=== PATIENT | male | born 1975 | race Caucasian/White ===

== ENCOUNTER 2019-11-30 10:39 | Observation (INO) | payer BC ==
[2019-11-30] MEDS ORDERED: Sodium Chloride 0.9% 2.5 ML Syringe FLUSH PRN (11:19)
[2019-11-30] MEDS ORDERED: Sodium Chloride 0.9% 10 ML Syringe FLUSH PRN (11:19)
[2019-11-30 12:02] LABS: BLOOD UREA NITROGEN,BUN 11 mg/dL (7.0-18.0); CARBON DIOXIDE,CO2 27.3 mmol/L (21.0-32.0); CHLORIDE,CL 104 mmol/L (98-107); GLUCOSE RANDOM 123 mg/dL (74-106); POTASSIUM,K 4.4 mmol/L (3.5-5.1); SODIUM,NA 141 mmol/L (136-148)
--- NOTE | 2019-11-30 12:13 | CR ---
Chest: 2 views of the chest were obtained. Comparison: No prior chest x-ray. Heart size and mediastinum are normal. Lungs are clear. Bony structures are unremarkable. Impression: 1. Nothing acute is seen on 2 view chest x-ray. Diagnostic code #1 This report was dictated in [place] Standard Time
[2019-11-30] MEDS ORDERED: Iopamidol 755 MG/ML 200 ML Multipack Bottle IVPUSH ONE (13:47)
--- NOTE | 2019-11-30 14:07 | CT ---
CT chest (without and with intravenous contrast) Technique: Multiple axial sections through the chest were obtained. Study was obtained without and with intravenous contrast. Comparison: Prior chest x-ray performed earlier on the same day (11:54 AM). Findings: Ascending aorta is slightly aneurysmal at 4.2 cm. Descending aorta measures normal at 2.4 cm. Mediastinum and hilar regions show no adenopathy or mass. No axillary adenopathy is seen. No pericardial thickening is noted. Mild gynecomastia is identified bilaterally. Fatty infiltration is noted within the liver. Cyst is noted within the left kidney measuring 2.1 cm. Lungs are clear. No acute parenchymal change is appreciated. No pleural effusions are noted. Bone window settings were reviewed which shows no acute osseous finding. Impression: 1. Ascending aorta mildly aneurysmal at 4.2 cm. 2. Other findings as noted above. 3. Nothing acute is appreciated on CT study of the chest. No mass lesion is seen. Diagnostic code #3 This report was dictated in [place] Standard Time
[2019-11-30] MEDS ORDERED: Ketorolac 30 MG/ML SDV IVPUSH ONE (15:40)
[2019-11-30] MEDS ORDERED: Morphine 4 MG/ML Syringe IVPUSH ONE (15:44)
--- NOTE | 2019-11-30 16:08 | EDM.PDOC ---
ED HPI GENERAL MEDICAL PROBLEM - General Chief Complaint: Chest Pain Stated Complaint: TAKEN BY NURSE Time Seen by Provider: 11/30/19 11:20 Source of Information: Reports: Patient - History of Present Illness INITIAL COMMENTS - FREE TEXT/NARRATIVE: Patient complains of left shoulder pain which began at 6 AM along with chest pain which began at 10 AM. Patient states that he did not engage in any sort of heavy exertion or unusual activity yesterday or today. The left shoulder pain is confined to the proximal left shoulder. The chest pain is in the substernal and left pectoral regions. Both pains began as he sat and watch TV. It is a tightness associated with dyspnea. No cough or wheezing. No nausea or diaphoresis. Pain does not change with walking or exertion. Chest pain changes with deep breathing. Denies any family or personal history of DVTs. Additionally, no travel in the past 30 days. Denies calf pain or swelling. No recent hospitalizations or fractures. Social history: Smokes. Family history: Negative for DVT, pulmonary embolism, acute [place]. Chest Pain Score (Numeric/FACES): 6 - Related Data Allergies Allergy/AdvReac Type Severity Reaction Status Date / Time amoxicillin [Amoxicillin] Allergy Hives Verified 11/30/19 17:15 bee venom protein (honey bee) Allergy Hives Verified 11/30/19 17:15 Home Meds: Home Meds . [No Known Home Meds] 05/20/14 [History] Past Medical History - Past Health History Medical/Surgical History: Denies Medical/Surgical History HEENT History: Reports: None Cardiovascular History: Reports: None Respiratory History: Reports: None Gastrointestinal History: Reports: None Genitourinary History: Reports: None Musculoskeletal History: Reports: None Neurological History: Reports: None Psychiatric History: Reports: None Endocrine/Metabolic History: Reports: None Hematologic History: Reports: None Immunologic History: Reports: None Oncologic (Cancer) History: Reports: None Dermatologic History: Reports: None - Infectious Disease History Infectious Disease History: Reports: Chicken Pox - Past Surgical History Head Surgeries/Procedures: Reports: None Musculoskeletal Surgical History: Reports: Arthroscopic Procedure Other Musculoskeletal Surgeries/Procedures:: R foot Social & Family History - Family History Family Medical History: Noncontributory - Tobacco Use Smoking Status *Q: Never Smoker Second Hand Smoke Exposure: No - Caffeine Use Caffeine Use: Reports: Coffee - Recreational Drug Use Recreational Drug Use: No ED ROS GENERAL - Review of Systems Review Of Systems: See Below (Review of systems negative for cough, fevers, wheeze. Review of systems positive for shortness of breath) ED EXAM, GENERAL - Physical Exam Exam: See Below Free Text/Narrative:: General: alert, well appearing, no acute distress HEENT: Atraumatic, normocephalic, pupils reactive, negative for conjunctival pallor or scleral icterus, mucous membranes moist, throat clear, handling oral secretions well. Neck: supple, nontender, trachea midline. Lungs: Clear to auscultation, breath sounds equal bilaterally, chest nontender. Heart: S1S2, regular, negative for clicks, rubs, or JVD. Abdomen: Soft, nondistended, nontender. Negative for masses or hepatosplenomegaly. Negative for costovertebral tenderness. Pelvis: Stable nontender. Skin: warm, dry, good turgor. Musculoskeletal: soft compartments. Extremities: Atraumatic, negative for cords or calf pain. Neurovascular unremarkable. Neuro: Awake, alert, oriented. Cranial nerves II through XII unremarkable. Cerebellum unremarkable. Motor and sensory unremarkable throughout. Exam nonfocal. EKG INTERPRETATION EKG Interpretation Comments: Ek bpm normal sinus rhythm with normal axis normal MA QRS, QTc intervals; no acute ST changes Course - Vital Signs Text/Narrative:: Cbc: wbc 16.72 (elev), otherwise unremarkable Cmp: hypegly (glu 123), otherwise unremarkable Coags: unremarkable Trop: eg d-dimer: nl UA: neg Lactate: 1.4 (nl) Influenza: neg Cxr: no acute infiltrate Ct chest: no mass lesion or acute parenchymal disease; the ascending aorta is mildly aneurysmal at 4.2 cm 12:28pm CBC shows unexplained leukocytosis. Will add UA, chest CT.Pts current temp is 97.5 RR 18 97% RA. Patient says he has no more left shoulder pain. He said is now moved to his right shoulder and that it does not change with movement. Neither joint has any kind of effusion or point tenderness. 1:00pm Pt awaiting labs, CT. Has undressed fully. No areas of cellulitis found. No hot, erythematous, tender, or swollen joints. No joint tenderness; FROM. 3:45pm Morphine given for discomfort. CT surg at [place] paged regarding pts CT finding. 3:54pm d/w Dr. Mishra, CT surgeon at [place]. He states that based on the CT report , pt needs an echo and should f/u with a machine rough rounder. Should meet with a CT surgeon soon, and will need annual f/u and repeated annual CTs to track the size of the aneurysm. If pt is a smoker, he should stop smoking. Treat any htn. Says he does not believe the chest pain is due to the aneurysm; suggests a cardiac workup. Discussed wit hospitalist, who agreed to admit pt for serial enzymes. Discussed with pt and his , who were amenable to plan to admit for serial enzymes. Also, pts bp has been elevated since arrival; perhaps some bp control can be instituted at this time. They are aware that they will need for pt to f/u with a machine rough rounder and CT surgeon next wk, and that this will not be done as part of his hospitalization for serial enzymes. Last Recorded V/S: Last Vital Signs Temp 99.2 F 11/30/19 19:37 Pulse 86 11/30/19 19:37 Resp 18 11/30/19 19:37 BP 174/100 H 11/30/19 19:34 Pulse Ox 96 11/30/19 19:37 - Orders/Labs/Meds Orders: Active Orders 24 hr Category Date Time Status Admission Status [Patient Status] [ADT] Stat ADT 11/30/19 16:10 Active Cardiac Monitoring [RC] Q8H Care 11/30/19 11:19 Active Sodium Chloride 0.9% [Saline Flush] Med 11/30/19 11:19 Active 10 ml FLUSH ASDIRECTED PRN Sodium Chloride 0.9% [Saline Flush] Med 11/30/19 11:19 Active 2.5 ml FLUSH ASDIRECTED PRN Saline Lock Insert [OM.PC] Stat Oth 11/30/19 11:19 Ordered Medication Orders Albuterol/Ipratropium (Duoneb 3.0-0.5 Mg/3 Ml) 3 ml NEB Q4HRRT PRN PRN Reason: Shortness Of Breath/wheezing Aspirin (Aspirin) 81 mg PO DAILY ROYAL Last Admin: 11/30/19 17:31 Dose: 81 mg Ketorolac Tromethamine (Toradol) 30 mg IVPUSH Q6H PRN PRN Reason: Pain Stop: 12/05/19 18:53 Labetalol HCl (Normodyne) 10 mg IVPUSH Q6H PRN; Protocol PRN Reason: Hypertension Metoprolol Succinate (Toprol Xl) 25 mg PO DAILY ROYAL Last Admin: 11/30/19 19:34 Dose: 25 mg Morphine Sulfate (Morphine) 1 mg IVPUSH Q4H PRN PRN Reason: Pain (severe 7-10) Stop: 12/01/19 16:54 Last Admin: 11/30/19 17:35 Dose: 1 mg Sodium Chloride (Saline Flush) 10 ml FLUSH ASDIRECTED PRN PRN Reason: Keep Vein Open Last Admin: 11/30/19 16:23 Dose: 10 ml Sodium Chloride (Saline Flush) 2.5 ml FLUSH ASDIRECTED PRN PRN Reason: Keep Vein Open Last Admin: 11/30/19 16:23 Dose: 2.5 ml Labs: Laboratory Tests 11/30/19 11/30/19 11/30/19 Range/Units 11:27 11:27 11:27 WBC 16.72 H (4.0-11.0) K/uL RBC 5.12 (4.50-5.90) M/uL Hgb 15.9 (13.0-17.0) g/dL Hct 45.7 (38.0-50.0) % MCV 89.3 (80.0-98.0) fL MCH 31.1 (27.0-32.0) pg MCHC 34.8 (31.0-37.0) g/dL RDW Std Deviation 40.4 (28.0-62.0) fl RDW Coeff of [place] 13 (11.0-15.0) % Plt Count 256 (150-400) K/uL MPV 9.70 (7.40-12.00) fL Neut % (Auto) 84.5 H (48.0-80.0) % Lymph % (Auto) 8.4 L (16.0-40.0) % [place] % (Auto) 6.2 (0.0-15.0) % Eos % (Auto) 0.8 (0.0-7.0) % Baso % (Auto) 0.1 (0.0-1.5) % Neut # (Auto) 14.1 H (1.4-5.7) K/uL Lymph # (Auto) 1.4 (0.6-2.4) K/uL [place] # (Auto) 1.0 H (0.0-0.8) K/uL Eos # (Auto) 0.1 (0.0-0.7) K/uL Baso # (Auto) 0.0 (0.0-0.1) K/uL Nucleated RBC % 0.0 /100WBC Nucleated RBCs # 0 K/uL INR 0.98 D-Dimer, Quantitative (0.0-0.50) mg/L FEU Lactate (0.20-2.00) mmol/L Sodium 141 (136-148) mmol/L Potassium 4.4 (3.5-5.1) mmol/L Chloride 104 (98-107) mmol/L Carbon Dioxide 27.3 (21.0-32.0) mmol/L BUN 11 (7.0-18.0) mg/dL Creatinine 1.1 (0.8-1.3) mg/dL Est Cr Clr Drug Dosing 97.56 mL/min Estimated GFR (MDRD) > 60.0 ml/min Glucose 123 H (74-106) mg/dL Hemoglobin A1c (4.5-6.2) % Calcium 9.0 (8.5-10.1) mg/dL Total Bilirubin 0.4 (0.2-1.0) mg/dL AST 29 (15-37) IU/L ALT 55 (14-63) IU/L Alkaline Phosphatase 63 (46-116) U/L Troponin I < 0.050 (0.000-0.056) ng/mL Total Protein 8.1 (6.4-8.2) g/dL Albumin 4.2 (3.4-5.0) g/dL Globulin 3.9 (2.6-4.0) g/dL Albumin/Globulin Ratio 1.1 (0.9-1.6) TSH 3rd Generation (0.36-3.74) uIU/mL Urine Color Urine Appearance Urine pH (5.0-8.0) Ur Specific [place] (1.001-1.035) Urine Protein (NEGATIVE) mg/dL Urine Glucose (UA) (NEGATIVE) mg/dL Urine Ketones (NEGATIVE) mg/dL Urine Occult Blood (NEGATIVE) Urine Nitrite (NEGATIVE) Urine Bilirubin (NEGATIVE) Urine Urobilinogen (<2.0) EU/dL Ur Leukocyte Esterase (NEGATIVE) 11/30/19 11/30/19 11/30/19 Range/Units 11:27 11:27 11:27 WBC (4.0-11.0) K/uL RBC (4.50-5.90) M/uL Hgb (13.0-17.0) g/dL Hct (38.0-50.0) % MCV (80.0-98.0) fL MCH (27.0-32.0) pg MCHC (31.0-37.0) g/dL RDW Std Deviation (28.0-62.0) fl RDW Coeff of [place] (11.0-15.0) % Plt Count (150-400) K/uL MPV (7.40-12.00) fL Neut % (Auto) (48.0-80.0) % Lymph % (Auto) (16.0-40.0) % [place] % (Auto) (0.0-15.0) % Eos % (Auto) (0.0-7.0) % Baso % (Auto) (0.0-1.5) % Neut # (Auto) (1.4-5.7) K/uL Lymph # (Auto) (0.6-2.4) K/uL [place] # (Auto) (0.0-0.8) K/uL Eos # (Auto) (0.0-0.7) K/uL Baso # (Auto) (0.0-0.1) K/uL Nucleated RBC % /100WBC Nucleated RBCs # K/uL INR D-Dimer, Quantitative 0.23 (0.0-0.50) mg/L FEU Lactate (0.20-2.00) mmol/L Sodium (136-148) mmol/L Potassium (3.5-5.1) mmol/L Chloride (98-107) mmol/L Carbon Dioxide (21.0-32.0) mmol/L BUN (7.0-18.0) mg/dL Creatinine (0.8-1.3) mg/dL Est Cr Clr Drug Dosing mL/min Estimated GFR (MDRD) ml/min Glucose (74-106) mg/dL Hemoglobin A1c 5.4 (4.5-6.2) % Calcium (8.5-10.1) mg/dL Total Bilirubin (0.2-1.0) mg/dL AST (15-37) IU/L ALT (14-63) IU/L Alkaline Phosphatase (46-116) U/L Troponin I (0.000-0.056) ng/mL Total Protein (6.4-8.2) g/dL Albumin (3.4-5.0) g/dL Globulin (2.6-4.0) g/dL Albumin/Globulin Ratio (0.9-1.6) TSH 3rd Generation 1.67 (0.36-3.74) uIU/mL Urine Color Urine Appearance Urine pH (5.0-8.0) Ur Specific [place] (1.001-1.035) Urine Protein (NEGATIVE) mg/dL Urine Glucose (UA) (NEGATIVE) mg/dL Urine Ketones (NEGATIVE) mg/dL Urine Occult Blood (NEGATIVE) Urine Nitrite (NEGATIVE) Urine Bilirubin (NEGATIVE) Urine Urobilinogen (<2.0) EU/dL Ur Leukocyte Esterase (NEGATIVE) 11/30/19 11/30/19 Range/Units 12:43 14:37 WBC (4.0-11.0) K/uL RBC (4.50-5.90) M/uL Hgb (13.0-17.0) g/dL Hct (38.0-50.0) % MCV (80.0-98.0) fL MCH (27.0-32.0) pg MCHC (31.0-37.0) g/dL RDW Std Deviation (28.0-62.0) fl RDW Coeff of [place] (11.0-15.0) % Plt Count (150-400) K/uL MPV (7.40-12.00) fL Neut % (Auto) (48.0-80.0) % Lymph % (Auto) (16.0-40.0) % [place] % (Auto) (0.0-15.0) % Eos % (Auto) (0.0-7.0) % Baso % (Auto) (0.0-1.5) % Neut # (Auto) (1.4-5.7) K/uL Lymph # (Auto) (0.6-2.4) K/uL [place] # (Auto) (0.0-0.8) K/uL Eos # (Auto) (0.0-0.7) K/uL Baso # (Auto) (0.0-0.1) K/uL Nucleated RBC % /100WBC Nucleated RBCs # K/uL INR D-Dimer, Quantitative (0.0-0.50) mg/L FEU Lactate 1.4 (0.20-2.00) mmol/L Sodium (136-148) mmol/L Potassium (3.5-5.1) mmol/L Chloride (98-107) mmol/L Carbon Dioxide (21.0-32.0) mmol/L BUN (7.0-18.0) mg/dL Creatinine (0.8-1.3) mg/dL Est Cr Clr Drug Dosing mL/min Estimated GFR (MDRD) ml/min Glucose (74-106) mg/dL Hemoglobin A1c (4.5-6.2) % Calcium (8.5-10.1) mg/dL Total Bilirubin (0.2-1.0) mg/dL AST (15-37) IU/L ALT (14-63) IU/L Alkaline Phosphatase (46-116) U/L Troponin I (0.000-0.056) ng/mL Total Protein (6.4-8.2) g/dL Albumin (3.4-5.0) g/dL Globulin (2.6-4.0) g/dL Albumin/Globulin Ratio (0.9-1.6) TSH 3rd Generation (0.36-3.74) uIU/mL Urine Color YELLOW Urine Appearance CLEAR Urine pH 5.5 (5.0-8.0) Ur Specific [place] 1.015 (1.001-1.035) Urine Protein NEGATIVE (NEGATIVE) mg/dL Urine Glucose (UA) NEGATIVE (NEGATIVE) mg/dL Urine Ketones NEGATIVE (NEGATIVE) mg/dL Urine Occult Blood NEGATIVE (NEGATIVE) Urine Nitrite NEGATIVE (NEGATIVE) Urine Bilirubin NEGATIVE (NEGATIVE) Urine Urobilinogen 0.2 (<2.0) EU/dL Ur Leukocyte Esterase NEGATIVE (NEGATIVE) Meds: Medications Generic Name Dose Route Start Last Admin Trade Name Freq PRN Reason Stop Dose Admin Albuterol/Ipratropium 3 ml 11/30/19 16:52 Duoneb 3.0-0.5 Mg/3 Ml NEB Q4HRRT PRN Shortness Of Breath/wheezing Aspirin 81 mg 11/30/19 17:15 11/30/19 17:31 Aspirin PO 81 mg DAILY ROYAL Administration Ketorolac Tromethamine 30 mg 11/30/19 18:52 Toradol IVPUSH 12/05/19 18:53 Q6H PRN Pain Labetalol HCl 10 mg 11/30/19 17:03 Normodyne IVPUSH Q6H PRN Hypertension Protocol Metoprolol Succinate 25 mg 11/30/19 19:30 11/30/19 19:34 Toprol Xl PO 25 mg DAILY ROYAL Administration Morphine Sulfate 1 mg 11/30/19 16:52 11/30/19 17:35 Morphine IVPUSH 12/01/19 16:54 1 mg Q4H PRN Administration Pain (severe 7-10) Sodium Chloride 10 ml 11/30/19 11:19 11/30/19 16:23 Saline Flush FLUSH 10 ml ASDIRECTED PRN Administration Keep Vein Open Sodium Chloride 2.5 ml 11/30/19 11:19 11/30/19 16:23 Saline Flush FLUSH 2.5 ml ASDIRECTED PRN Administration Keep Vein Open Discontinued Medications Generic Name Dose Route Start Last Admin Trade Name Freq PRN Reason Stop Dose Admin Calcium Carbonate/Glycine 1,000 mg 11/30/19 18:49 11/30/19 19:02 Tums PO 11/30/19 18:50 1,000 mg ONETIME ONE Administration Pantoprazole Sodium 40 mg/ 10 mls @ 300 mls/hr 11/30/19 18:48 11/30/19 19:03 Sodium Chloride IV 11/30/19 18:49 300 mls/hr NOW ONE Administration Iopamidol 75 ml 11/30/19 13:47 11/30/19 13:47 Isovue Multipack-370 (76%) IVPUSH 11/30/19 13:48 75 ml ONETIME ONE Administration Ketorolac Tromethamine 30 mg 11/30/19 15:40 11/30/19 16:55 Toradol IVPUSH 11/30/19 15:41 Not Given ONETIME ONE Lorazepam 1 mg 11/30/19 18:50 11/30/19 19:03 Ativan IVPUSH 11/30/19 18:51 1 mg ONETIME ONE Administration Morphine Sulfate 4 mg 11/30/19 15:44 11/30/19 16:22 Morphine IVPUSH 11/30/19 15:45 Not Given ONETIME ONE Departure - Departure Time of Disposition: 16:00 Disposition: Refer to Observation Clinical Impression: Chest pain, HTN (hypertension) Sepsis Event Note - Evaluation Sepsis Screening Result: No Definite Risk - Focused Exam Vital Signs: Vital Signs Temp Pulse Resp BP Pulse Ox 11/30/19 16:22 95 16 152/104 H 95 11/30/19 14:30 90 16 165/106 H 96 11/30/19 12:29 97.5 F 11/30/19 10:42 96 F L 88 18 162/101 H 97 Date Exam was Performed: 11/30/19 Time Exam was Performed: 20:33 - My Orders Last 24 Hours: My Active Orders 11/30/19 11:19 Cardiac Monitoring [RC] Q8H Sodium Chloride 0.9% [Saline Flush] 10 ml FLUSH ASDIRECTED PRN Sodium Chloride 0.9% [Saline Flush] 2.5 ml FLUSH ASDIRECTED PRN Saline Lock Insert [OM.PC] Stat 11/30/19 16:10 Admission Status [Patient Status] [ADT] Stat - Assessment/Plan Last 24 Hours: My Active Orders 11/30/19 11:19 Cardiac Monitoring [RC] Q8H Sodium Chloride 0.9% [Saline Flush] 10 ml FLUSH ASDIRECTED PRN Sodium Chloride 0.9% [Saline Flush] 2.5 ml FLUSH ASDIRECTED PRN Saline Lock Insert [OM.PC] Stat 11/30/19 16:10 Admission Status [Patient Status] [ADT] Stat
[2019-11-30] MEDS ORDERED: Morphine 2 MG/ML SYRINGE IVPUSH PRN (16:52)
[2019-11-30] MEDS ORDERED: Albuterol/Ipratropium 3.0-0.5 MG/3 ML Neb Soln NEB PRN (16:52)
[2019-11-30] MEDS ORDERED: Labetalol 100 MG/20 ML MDV IVPUSH PRN (17:03)
--- NOTE | 2019-11-30 17:14 | PCM.HP.2 ---
H&P History of Present Illness - General Date of Service: 11/30/19 Admit Problem/Dx: Admission Diagnosis/Problem Admission Diagnosis/Problem Chest pain - History of Present Illness Initial Comments - Free Text/Narative: Patient is a 44 y/o M with PMH of HTN who comes in with complains of left shoulder pain which began at 6 AM , he felt as if he had slept in a bad posture , later he started feeling short of breath as well. He feels like he is unable to take deep breaths and has a sharp pain when he takes deep breaths. Patient states that he did not engage in any sort of heavy exertion or unusual activity lately. He states his chest pain feels like "heart burn" he feels he can the burning in his "stomach area". No cough or wheezing, No nausea or diaphoresis. Denies any family or personal history of DVTs. Additionally, no travel in the past 30 days. Denies calf pain or swelling. No recent hospitalizations or fractures. In the ER EKG was obtained which was unremarkable for any acute ST, T wave changes, 1st set of trop was negative, BP was on higher side in 170s. Chest CT showed a small AAA, CT surgeon in [place] recommended outpatient f/u, CBC showed leucocytosis, although no source of infection was found. Patient is being admitted for ACS rule out due to persistent pain. . Chest Pain Score (Numeric/FACES): 6 - Related Data Allergies/Adverse Reactions: Allergies Allergy/AdvReac Type Severity Reaction Status Date / Time amoxicillin [Amoxicillin] Allergy Hives Verified 11/30/19 17:15 bee venom protein (honey bee) Allergy Hives Verified 11/30/19 17:15 Home Medications: Home Meds Omeprazole 40 mg PO DAILY #30 capsule. 12/01/19 [Rx] Sucralfate [Carafate] 1 gm PO TIDAC 7 Days #21 tablet 12/01/19 [Rx] Past Medical History - Past Health History Medical/Surgical History: Denies Medical/Surgical History HEENT History: Reports: None Cardiovascular History: Reports: None Respiratory History: Reports: None Gastrointestinal History: Reports: None Genitourinary History: Reports: None Musculoskeletal History: Reports: None Neurological History: Reports: None Psychiatric History: Reports: None Endocrine/Metabolic History: Reports: None Hematologic History: Reports: None Immunologic History: Reports: None Oncologic (Cancer) History: Reports: None Dermatologic History: Reports: None - Infectious Disease History Infectious Disease History: Reports: Chicken Pox - Past Surgical History Head Surgeries/Procedures: Reports: None Musculoskeletal Surgical History: Reports: Arthroscopic Procedure Other Musculoskeletal Surgeries/Procedures:: R foot Social & Family History - Family History Family Medical History: Noncontributory - Tobacco Use Smoking Status *Q: Former Smoker Used Tobacco, but Quit: No Second Hand Smoke Exposure: No - Caffeine Use Caffeine Use: Reports: Coffee - Alcohol Use Number of Drinks Per Day: 6 Date of Last Drink: 11/29/19 Time of Last Drink: 23:00 - Recreational Drug Use Recreational Drug Use: No H&P Review of Systems - Review of Systems: Review Of Systems: See Below General: Denies: Fever, Chills, Malaise HEENT: Denies: Dysphasia, Ear Pain, Eye Pain Pulmonary: Denies: Shortness of Breath, Wheezing, Pleuritic Chest Pain Cardiovascular: Reports: Chest Pain, Dyspnea on Exertion. Denies: Palpitations , Edema, Lightheadedness, Claudication Gastrointestinal: Denies: Abdominal Pain, Anorexia, Black Stool Genitourinary: Denies: Dysuria, Frequency Musculoskeletal: Reports: Shoulder Pain (left). Denies: Neck Pain Skin: Denies: Cyanosis, Jaundice, Mottled Psychiatric: Reports: Anxiety. Denies: Confusion, Depression Exam - Exam Exam: See Below - Vital Signs Vital Signs: Last Vital Signs Temp 36.4 C 11/30/19 12:29 Pulse 95 11/30/19 16:22 Resp 16 11/30/19 16:22 BP 152/104 H 11/30/19 16:22 Pulse Ox 95 11/30/19 16:22 Weight: 110.767 kg - Exam Quality Assessment: No: Supplemental Oxygen General: Alert, Oriented HEENT: Conjunctiva Clear Neck: Supple, Trachea Midline Lungs: Clear to Auscultation, Normal Respiratory Effort. No: Decreased Breath Sounds, Wheezing Cardiovascular: Regular Rate, Regular Rhythm, Normal S1, Normal S2 GI/Abdominal Exam: Normal Bowel Sounds, Soft, Non-Tender - Patient Data Lab Results Last 24 hrs: Laboratory Results - last 24 hr 11/30/19 11/30/19 11/30/19 Range/Units 11:27 11:27 11:27 WBC 16.72 H (4.0-11.0) K/uL RBC 5.12 (4.50-5.90) M/uL Hgb 15.9 (13.0-17.0) g/dL Hct 45.7 (38.0-50.0) % MCV 89.3 (80.0-98.0) fL MCH 31.1 (27.0-32.0) pg MCHC 34.8 (31.0-37.0) g/dL RDW Std Deviation 40.4 (28.0-62.0) fl RDW Coeff of Satnam 13 (11.0-15.0) % Plt Count 256 (150-400) K/uL MPV 9.70 (7.40-12.00) fL Neut % (Auto) 84.5 H (48.0-80.0) % Lymph % (Auto) 8.4 L (16.0-40.0) % Florence % (Auto) 6.2 (0.0-15.0) % Eos % (Auto) 0.8 (0.0-7.0) % Baso % (Auto) 0.1 (0.0-1.5) % Neut # (Auto) 14.1 H (1.4-5.7) K/uL Lymph # (Auto) 1.4 (0.6-2.4) K/uL Florence # (Auto) 1.0 H (0.0-0.8) K/uL Eos # (Auto) 0.1 (0.0-0.7) K/uL Baso # (Auto) 0.0 (0.0-0.1) K/uL Nucleated RBC % 0.0 /100WBC Nucleated RBCs # 0 K/uL INR 0.98 D-Dimer, Quantitative (0.0-0.50) mg/L FEU Lactate (0.20-2.00) mmol/L Sodium 141 (136-148) mmol/L Potassium 4.4 (3.5-5.1) mmol/L Chloride 104 (98-107) mmol/L Carbon Dioxide 27.3 (21.0-32.0) mmol/L BUN 11 (7.0-18.0) mg/dL Creatinine 1.1 (0.8-1.3) mg/dL Est Cr Clr Drug Dosing 97.56 mL/min Estimated GFR (MDRD) > 60.0 ml/min Glucose 123 H (74-106) mg/dL Calcium 9.0 (8.5-10.1) mg/dL Total Bilirubin 0.4 (0.2-1.0) mg/dL AST 29 (15-37) IU/L ALT 55 (14-63) IU/L Alkaline Phosphatase 63 (46-116) U/L Troponin I < 0.050 (0.000-0.056) ng/mL Total Protein 8.1 (6.4-8.2) g/dL Albumin 4.2 (3.4-5.0) g/dL Globulin 3.9 (2.6-4.0) g/dL Albumin/Globulin Ratio 1.1 (0.9-1.6) Urine Color Urine Appearance Urine pH (5.0-8.0) Ur Specific Lund (1.001-1.035) Urine Protein (NEGATIVE) mg/dL Urine Glucose (UA) (NEGATIVE) mg/dL Urine Ketones (NEGATIVE) mg/dL Urine Occult Blood (NEGATIVE) Urine Nitrite (NEGATIVE) Urine Bilirubin (NEGATIVE) Urine Urobilinogen (<2.0) EU/dL Ur Leukocyte Esterase (NEGATIVE) 11/30/19 11/30/19 11/30/19 Range/Units 11:27 12:43 14:37 WBC (4.0-11.0) K/uL RBC (4.50-5.90) M/uL Hgb (13.0-17.0) g/dL Hct (38.0-50.0) % MCV (80.0-98.0) fL MCH (27.0-32.0) pg MCHC (31.0-37.0) g/dL RDW Std Deviation (28.0-62.0) fl RDW Coeff of Satnam (11.0-15.0) % Plt Count (150-400) K/uL MPV (7.40-12.00) fL Neut % (Auto) (48.0-80.0) % Lymph % (Auto) (16.0-40.0) % Florence % (Auto) (0.0-15.0) % Eos % (Auto) (0.0-7.0) % Baso % (Auto) (0.0-1.5) % Neut # (Auto) (1.4-5.7) K/uL Lymph # (Auto) (0.6-2.4) K/uL Florence # (Auto) (0.0-0.8) K/uL Eos # (Auto) (0.0-0.7) K/uL Baso # (Auto) (0.0-0.1) K/uL Nucleated RBC % /100WBC Nucleated RBCs # K/uL INR D-Dimer, Quantitative 0.23 (0.0-0.50) mg/L FEU Lactate 1.4 (0.20-2.00) mmol/L Sodium (136-148) mmol/L Potassium (3.5-5.1) mmol/L Chloride (98-107) mmol/L Carbon Dioxide (21.0-32.0) mmol/L BUN (7.0-18.0) mg/dL Creatinine (0.8-1.3) mg/dL Est Cr Clr Drug Dosing mL/min Estimated GFR (MDRD) ml/min Glucose (74-106) mg/dL Calcium (8.5-10.1) mg/dL Total Bilirubin (0.2-1.0) mg/dL AST (15-37) IU/L ALT (14-63) IU/L Alkaline Phosphatase (46-116) U/L Troponin I (0.000-0.056) ng/mL Total Protein (6.4-8.2) g/dL Albumin (3.4-5.0) g/dL Globulin (2.6-4.0) g/dL Albumin/Globulin Ratio (0.9-1.6) Urine Color YELLOW Urine Appearance CLEAR Urine pH 5.5 (5.0-8.0) Ur Specific Lund 1.015 (1.001-1.035) Urine Protein NEGATIVE (NEGATIVE) mg/dL Urine Glucose (UA) NEGATIVE (NEGATIVE) mg/dL Urine Ketones NEGATIVE (NEGATIVE) mg/dL Urine Occult Blood NEGATIVE (NEGATIVE) Urine Nitrite NEGATIVE (NEGATIVE) Urine Bilirubin NEGATIVE (NEGATIVE) Urine Urobilinogen 0.2 (<2.0) EU/dL Ur Leukocyte Esterase NEGATIVE (NEGATIVE) Result Diagrams: 12/01/19 06:45 11/30/19 11:27 [place] Results Last 24 hrs: Microbiology 11/30/19 12:40 Influenza Type A Antigen Screen - Final Nasopharyngeal Swab NEGATIVE INFLUENZA A VIRUS AG REFERENCE RANGE: NEGATIVE Influenza Type B Antigen Screen - Final NEGATIVE INFLUENZA B VIRUS AG REFERENCE RANGE: NEGATIVE Sepsis Event Note - Evaluation Sepsis Screening Result: No Definite Risk - Focused Exam Vital Signs: Vital Signs Temp Pulse Resp BP Pulse Ox 11/30/19 16:22 95 16 152/104 H 95 11/30/19 14:30 90 16 165/106 H 96 11/30/19 12:29 36.4 C 11/30/19 10:42 35.5 C L 88 18 162/101 H 97 Date Exam was Performed: 12/06/19 Time Exam was Performed: 12:42 - Problem List (1) Ascending aortic aneurysm Status: Acute (2) HTN (hypertension) SNOMED Code(s): 22953998 ICD Code: I10 - ESSENTIAL (PRIMARY) HYPERTENSION Status: Acute (3) Chest pain SNOMED Code(s): 10176737 ICD Code: R07.9 - CHEST PAIN, UNSPECIFIED Status: Acute (4) Leucocytosis SNOMED Code(s): 342816849, 020625011 ICD Code: D72.829 - ELEVATED WHITE BLOOD CELL COUNT, UNSPECIFIED Status: Acute Problem List Initiated/Reviewed/Updated: Yes Orders Last 24hrs: Active Orders 24 hr Category Date Time Status Admission Status [Patient Status] [ADT] Stat ADT 11/30/19 16:10 Active Ambulate [RC] ASDIRECTED Care 11/30/19 16:45 Active Antiembolic Devices [RC] PER UNIT ROUTINE Care 11/30/19 16:55 Active Cardiac Monitoring [RC] . DIRECTED Care 11/30/19 11:19 Active Oxygen Therapy [RC] PRN Care 11/30/19 16:45 Active Pulse Oximetry [RC] PRN Care 11/30/19 16:45 Active RT Aerosol Therapy [RC] ASDIRECTED Care 11/30/19 16:55 Active VTE/DVT Education [RC] PER UNIT ROUTINE Care 11/30/19 16:45 Active Vital Signs [RC] Q4H Care 11/30/19 16:45 Active Heart Healthy Diet [DIET] Diet 11/30/19 Dinner Active Echo Comp wo Cont [US] Routine Exams 11/30/19 17:12 Ordered CBC WITH AUTO DIFF [HEME] AM Lab 12/01/19 05:11 Ordered GLYCOSYLATED HEMOGLOBIN,HGBA1C [CHEM] Routine Lab 11/30/19 11:27 Received LIPID PANEL [CHEM] AM Lab 12/02/19 05:11 Ordered MAGNESIUM [CHEM] AM Lab 12/01/19 05:11 Ordered PHOSPHORUS [CHEM] AM Lab 12/01/19 05:11 Ordered TROPONIN I [CHEM] Q6H Lab 11/30/19 17:30 Ordered TROPONIN I [CHEM] Q6H Lab 11/30/19 23:30 Ordered TSH [CHEM] Routine Lab 11/30/19 11:27 Received Albuterol/Ipratropium [DuoNeb 3.0-0.5 MG/3 ML] Med 11/30/19 16:52 Active 3 ml NEB Q4HRRT PRN Aspirin Med 11/30/19 17:15 Active 81 mg PO DAILY Labetalol [Normodyne] Med 11/30/19 17:03 Active 10 mg IVPUSH Q6H PRN Metoprolol Succinate [Toprol XL] Med 12/01/19 09:00 Active 25 mg PO DAILY Morphine Med 11/30/19 16:52 Active 1 mg IVPUSH Q4H PRN Sodium Chloride 0.9% [Saline Flush] Med 11/30/19 11:19 Active 10 ml FLUSH ASDIRECTED PRN Sodium Chloride 0.9% [Saline Flush] Med 11/30/19 11:19 Active 2.5 ml FLUSH ASDIRECTED PRN Saline Lock Insert [OM.PC] Stat Oth 11/30/19 11:19 Ordered Sequential Compression Device [OM.PC] Per Unit Routine Oth 11/30/19 16:47 Ordered Resuscitation Status Routine Resus Stat 11/30/19 16:45 Ordered Medication Orders Albuterol/Ipratropium (Duoneb 3.0-0.5 Mg/3 Ml) 3 ml NEB Q4HRRT PRN PRN Reason: Shortness Of Breath/wheezing Aspirin (Aspirin) 81 mg PO DAILY ROYAL Labetalol HCl (Normodyne) 10 mg IVPUSH Q6H PRN; Protocol PRN Reason: Hypertension Metoprolol Succinate (Toprol Xl) 25 mg PO DAILY ROYAL Morphine Sulfate (Morphine) 1 mg IVPUSH Q4H PRN PRN Reason: Pain (severe 7-10) Stop: 12/01/19 16:54 Sodium Chloride (Saline Flush) 10 ml FLUSH ASDIRECTED PRN PRN Reason: Keep Vein Open Last Admin: 11/30/19 16:23 Dose: 10 ml Sodium Chloride (Saline Flush) 2.5 ml FLUSH ASDIRECTED PRN PRN Reason: Keep Vein Open Last Admin: 11/30/19 16:23 Dose: 2.5 ml Assessment/Plan Comment:: 44 y/o M admitted for chest pain (pain with deep inspiration) EKG unremarkable, Troponin 2 sets negative so far cont trending total of 3 sets Chest pain seems pleuritic in nature, will check ESR, CRP BP control with PRN Labetalol 10mg IV Start Metoprolol 25mg daily check TSH, lipid profile, HbA1c, 2D ECHO Administer PPI 40mg IV and Maalox now Toradol for pain as needed Leucocytosis, CXR clear, UA clean, no other source of infection on physical exam , could be reactive, repeat CBC in AM Monitor and replete electrolytes as needed cont to monitor vitals closely
[2019-11-30] MEDS: Aspirin 81 MG Tab.Chew PO SCH (17:31)
[2019-11-30 17:37] LABS: HEMOGLOBIN A1C 5.4 % (4.5-6.2)
[2019-11-30] MEDS ORDERED: Pantoprazole 40 MG in Sodium Chloride 0.9% 10 ML IV ONE (18:48)
[2019-11-30] MEDS ORDERED: Calcium Carbonate 500 MG Tab.Chew PO ONE (18:49)
[2019-11-30] MEDS ORDERED: LORazepam 2 MG/ML SDV IVPUSH ONE (18:50)
[2019-11-30] MEDS ORDERED: Ketorolac 30 MG/ML SDV IVPUSH PRN (18:52)
[2019-11-30] MEDS: Metoprolol Succinate 25 MG Tab.ER PO SCH (19:34)
[2019-12-01] MEDS: Aspirin 81 MG Tab.Chew PO SCH (08:05)
[2019-12-01] MEDS: Metoprolol Succinate 25 MG Tab.ER PO SCH (08:05)
--- NOTE | 2019-12-01 10:43 | PCM.DCSUM1 ---
<Abdullahi Carlson - Last Filed: 12/01/19 12:21> Discharge Summary - Hospital Course Free Text/Narrative:: 44 y/o male who presented to the ER complaining of chest pain and pleurisy. He was admitted for ACS rule out. Serial troponins were negative. CT chest showed mildly enlarged AAA at 4.2 cm. He will need outpatient follow-up for this, possibly referral to cardiothoracic surgery. In addition, he will need ECHO and stress test as outpatient for further evaluation. His chest pain resolved with Toradol and GI cocktail. He was discharged home on Omeprazole 40 mg PO daily and Carafate with instructions to follow-up with his PCP in 1-2 weeks. - Discharge Data Discharge Date: 12/01/19 Discharge Disposition: Home, Self-Care 01 Condition: Good - Referral to Home Health Primary Care Physician: PCP None - Patient Instructions Diet: Regular Diet as Tolerated Activity: As Tolerated Notify Provider of: Fever, Increased Pain, Swelling and Redness, Nausea and/or Vomiting Other/Special Instructions: You can use Tylenol or Ibuprofen for pain as needed. - Discharge Plan Prescriptions/Med Rec: Omeprazole 40 mg PO DAILY #30 capsule. Sucralfate [Carafate] 1 gm PO TIDAC 7 Days #21 tablet Home Medications: Home Meds Omeprazole 40 mg PO DAILY #30 capsule. 12/01/19 [Rx] Sucralfate [Carafate] 1 gm PO TIDAC 7 Days #21 tablet 12/01/19 [Rx] Patient Handouts: Sucralfate tablets, Gastroesophageal Reflux Disease, Adult, Pleurisy, [id number]-[id number], Omeprazole tablets (OTC) Referrals: Morgan Bui MD [Ordering Only Provider] - (Call on Monday to make a hospital floow-up. The appointment was not made for you, due to it being the weekend. You need to be seen in 1 week, and talk to the doctor about getting an ECHO for your heart. ) - Discharge Summary/Plan Comment DC Time >30 min.: No - Patient Data Vitals - Most Recent: Last Vital Signs Temp 36.3 C 12/01/19 08:00 Pulse 84 12/01/19 08:05 Resp 18 12/01/19 08:00 BP 122/84 12/01/19 08:05 Pulse Ox 94 L 12/01/19 08:00 Weight - Most Recent: 110.767 kg I&O - Last 24 hours: Intake & Output 11/30/19 12/01/19 12/01/19 22:59 06:59 14:59 Intake Total 0 120 Balance 0 120 Lab Results - Last 24 hrs: Laboratory Results - last 24 hr 11/30/19 11/30/19 11/30/19 Range/Units 11:27 11:27 11:27 WBC 16.72 H (4.0-11.0) K/uL RBC 5.12 (4.50-5.90) M/uL Hgb 15.9 (13.0-17.0) g/dL Hct 45.7 (38.0-50.0) % MCV 89.3 (80.0-98.0) fL MCH 31.1 (27.0-32.0) pg MCHC 34.8 (31.0-37.0) g/dL RDW Std Deviation 40.4 (28.0-62.0) fl RDW Coeff of Satnam 13 (11.0-15.0) % Plt Count 256 (150-400) K/uL MPV 9.70 (7.40-12.00) fL Neut % (Auto) 84.5 H (48.0-80.0) % Lymph % (Auto) 8.4 L (16.0-40.0) % [place] % (Auto) 6.2 (0.0-15.0) % Eos % (Auto) 0.8 (0.0-7.0) % Baso % (Auto) 0.1 (0.0-1.5) % Neut # (Auto) 14.1 H (1.4-5.7) K/uL Lymph # (Auto) 1.4 (0.6-2.4) K/uL [place] # (Auto) 1.0 H (0.0-0.8) K/uL Eos # (Auto) 0.1 (0.0-0.7) K/uL Baso # (Auto) 0.0 (0.0-0.1) K/uL Nucleated RBC % 0.0 /100WBC Nucleated RBCs # 0 K/uL ESR (0-14) mm/hr INR 0.98 D-Dimer, Quantitative (0.0-0.50) mg/L FEU Lactate (0.20-2.00) mmol/L Sodium 141 (136-148) mmol/L Potassium 4.4 (3.5-5.1) mmol/L Chloride 104 (98-107) mmol/L Carbon Dioxide 27.3 (21.0-32.0) mmol/L BUN 11 (7.0-18.0) mg/dL Creatinine 1.1 (0.8-1.3) mg/dL Est Cr Clr Drug Dosing 97.56 mL/min Estimated GFR (MDRD) > 60.0 ml/min Glucose 123 H (74-106) mg/dL Hemoglobin A1c (4.5-6.2) % Calcium 9.0 (8.5-10.1) mg/dL Phosphorus (2.6-4.7) mg/dL Magnesium (1.8-2.4) mg/dL Total Bilirubin 0.4 (0.2-1.0) mg/dL AST 29 (15-37) IU/L ALT 55 (14-63) IU/L Alkaline Phosphatase 63 (46-116) U/L Troponin I < 0.050 (0.000-0.056) ng/mL Total Protein 8.1 (6.4-8.2) g/dL Albumin 4.2 (3.4-5.0) g/dL Globulin 3.9 (2.6-4.0) g/dL Albumin/Globulin Ratio 1.1 (0.9-1.6) TSH 3rd Generation (0.36-3.74) uIU/mL Urine Color Urine Appearance Urine pH (5.0-8.0) Ur Specific Duarte (1.001-1.035) Urine Protein (NEGATIVE) mg/dL Urine Glucose (UA) (NEGATIVE) mg/dL Urine Ketones (NEGATIVE) mg/dL Urine Occult Blood (NEGATIVE) Urine Nitrite (NEGATIVE) Urine Bilirubin (NEGATIVE) Urine Urobilinogen (<2.0) EU/dL Ur Leukocyte Esterase (NEGATIVE) 11/30/19 11/30/19 11/30/19 Range/Units 11:27 11:27 11:27 WBC (4.0-11.0) K/uL RBC (4.50-5.90) M/uL Hgb (13.0-17.0) g/dL Hct (38.0-50.0) % MCV (80.0-98.0) fL MCH (27.0-32.0) pg MCHC (31.0-37.0) g/dL RDW Std Deviation (28.0-62.0) fl RDW Coeff of Satnam (11.0-15.0) % Plt Count (150-400) K/uL MPV (7.40-12.00) fL Neut % (Auto) (48.0-80.0) % Lymph % (Auto) (16.0-40.0) % [place] % (Auto) (0.0-15.0) % Eos % (Auto) (0.0-7.0) % Baso % (Auto) (0.0-1.5) % Neut # (Auto) (1.4-5.7) K/uL Lymph # (Auto) (0.6-2.4) K/uL [place] # (Auto) (0.0-0.8) K/uL Eos # (Auto) (0.0-0.7) K/uL Baso # (Auto) (0.0-0.1) K/uL Nucleated RBC % /100WBC Nucleated RBCs # K/uL ESR (0-14) mm/hr INR D-Dimer, Quantitative 0.23 (0.0-0.50) mg/L FEU Lactate (0.20-2.00) mmol/L Sodium (136-148) mmol/L Potassium (3.5-5.1) mmol/L Chloride (98-107) mmol/L Carbon Dioxide (21.0-32.0) mmol/L BUN (7.0-18.0) mg/dL Creatinine (0.8-1.3) mg/dL Est Cr Clr Drug Dosing mL/min Estimated GFR (MDRD) ml/min Glucose (74-106) mg/dL Hemoglobin A1c 5.4 (4.5-6.2) % Calcium (8.5-10.1) mg/dL Phosphorus (2.6-4.7) mg/dL Magnesium (1.8-2.4) mg/dL Total Bilirubin (0.2-1.0) mg/dL AST (15-37) IU/L ALT (14-63) IU/L Alkaline Phosphatase (46-116) U/L Troponin I (0.000-0.056) ng/mL Total Protein (6.4-8.2) g/dL Albumin (3.4-5.0) g/dL Globulin (2.6-4.0) g/dL Albumin/Globulin Ratio (0.9-1.6) TSH 3rd Generation 1.67 (0.36-3.74) uIU/mL Urine Color Urine Appearance Urine pH (5.0-8.0) Ur Specific Duarte (1.001-1.035) Urine Protein (NEGATIVE) mg/dL Urine Glucose (UA) (NEGATIVE) mg/dL Urine Ketones (NEGATIVE) mg/dL Urine Occult Blood (NEGATIVE) Urine Nitrite (NEGATIVE) Urine Bilirubin (NEGATIVE) Urine Urobilinogen (<2.0) EU/dL Ur Leukocyte Esterase (NEGATIVE) 11/30/19 11/30/19 11/30/19 Range/Units 12:43 14:37 17:32 WBC (4.0-11.0) K/uL RBC (4.50-5.90) M/uL Hgb (13.0-17.0) g/dL Hct (38.0-50.0) % MCV (80.0-98.0) fL MCH (27.0-32.0) pg MCHC (31.0-37.0) g/dL RDW Std Deviation (28.0-62.0) fl RDW Coeff of Satnam (11.0-15.0) % Plt Count (150-400) K/uL MPV (7.40-12.00) fL Neut % (Auto) (48.0-80.0) % Lymph % (Auto) (16.0-40.0) % [place] % (Auto) (0.0-15.0) % Eos % (Auto) (0.0-7.0) % Baso % (Auto) (0.0-1.5) % Neut # (Auto) (1.4-5.7) K/uL Lymph # (Auto) (0.6-2.4) K/uL [place] # (Auto) (0.0-0.8) K/uL Eos # (Auto) (0.0-0.7) K/uL Baso # (Auto) (0.0-0.1) K/uL Nucleated RBC % /100WBC Nucleated RBCs # K/uL ESR (0-14) mm/hr INR D-Dimer, Quantitative (0.0-0.50) mg/L FEU Lactate 1.4 (0.20-2.00) mmol/L Sodium (136-148) mmol/L Potassium (3.5-5.1) mmol/L Chloride (98-107) mmol/L Carbon Dioxide (21.0-32.0) mmol/L BUN (7.0-18.0) mg/dL Creatinine (0.8-1.3) mg/dL Est Cr Clr Drug Dosing mL/min Estimated GFR (MDRD) ml/min Glucose (74-106) mg/dL Hemoglobin A1c (4.5-6.2) % Calcium (8.5-10.1) mg/dL Phosphorus (2.6-4.7) mg/dL Magnesium (1.8-2.4) mg/dL Total Bilirubin (0.2-1.0) mg/dL AST (15-37) IU/L ALT (14-63) IU/L Alkaline Phosphatase (46-116) U/L Troponin I < 0.050 (0.000-0.056) ng/mL Total Protein (6.4-8.2) g/dL Albumin (3.4-5.0) g/dL Globulin (2.6-4.0) g/dL Albumin/Globulin Ratio (0.9-1.6) TSH 3rd Generation (0.36-3.74) uIU/mL Urine Color YELLOW Urine Appearance CLEAR Urine pH 5.5 (5.0-8.0) Ur Specific Duarte 1.015 (1.001-1.035) Urine Protein NEGATIVE (NEGATIVE) mg/dL Urine Glucose (UA) NEGATIVE (NEGATIVE) mg/dL Urine Ketones NEGATIVE (NEGATIVE) mg/dL Urine Occult Blood NEGATIVE (NEGATIVE) Urine Nitrite NEGATIVE (NEGATIVE) Urine Bilirubin NEGATIVE (NEGATIVE) Urine Urobilinogen 0.2 (<2.0) EU/dL Ur Leukocyte Esterase NEGATIVE (NEGATIVE) 11/30/19 11/30/19 12/01/19 Range/Units 17:32 23:40 06:45 WBC 10.09 (4.0-11.0) K/uL RBC 4.74 (4.50-5.90) M/uL Hgb 14.5 (13.0-17.0) g/dL Hct 42.3 (38.0-50.0) % MCV 89.2 (80.0-98.0) fL MCH 30.6 (27.0-32.0) pg MCHC 34.3 (31.0-37.0) g/dL RDW Std Deviation 41.6 (28.0-62.0) fl RDW Coeff of Satnam 13 (11.0-15.0) % Plt Count 234 (150-400) K/uL MPV 9.60 (7.40-12.00) fL Neut % (Auto) 66.5 (48.0-80.0) % Lymph % (Auto) 19.6 (16.0-40.0) % [place] % (Auto) 12.2 (0.0-15.0) % Eos % (Auto) 1.5 (0.0-7.0) % Baso % (Auto) 0.2 (0.0-1.5) % Neut # (Auto) 6.7 H (1.4-5.7) K/uL Lymph # (Auto) 2.0 (0.6-2.4) K/uL [place] # (Auto) 1.2 H (0.0-0.8) K/uL Eos # (Auto) 0.2 (0.0-0.7) K/uL Baso # (Auto) 0.0 (0.0-0.1) K/uL Nucleated RBC % 0.0 /100WBC Nucleated RBCs # 0 K/uL ESR 2 (0-14) mm/hr INR D-Dimer, Quantitative (0.0-0.50) mg/L FEU Lactate (0.20-2.00) mmol/L Sodium (136-148) mmol/L Potassium (3.5-5.1) mmol/L Chloride (98-107) mmol/L Carbon Dioxide (21.0-32.0) mmol/L BUN (7.0-18.0) mg/dL Creatinine (0.8-1.3) mg/dL Est Cr Clr Drug Dosing mL/min Estimated GFR (MDRD) ml/min Glucose (74-106) mg/dL Hemoglobin A1c (4.5-6.2) % Calcium (8.5-10.1) mg/dL Phosphorus (2.6-4.7) mg/dL Magnesium (1.8-2.4) mg/dL Total Bilirubin (0.2-1.0) mg/dL AST (15-37) IU/L ALT (14-63) IU/L Alkaline Phosphatase (46-116) U/L Troponin I < 0.050 (0.000-0.056) ng/mL Total Protein (6.4-8.2) g/dL Albumin (3.4-5.0) g/dL Globulin (2.6-4.0) g/dL Albumin/Globulin Ratio (0.9-1.6) TSH 3rd Generation (0.36-3.74) uIU/mL Urine Color Urine Appearance Urine pH (5.0-8.0) Ur Specific Duarte (1.001-1.035) Urine Protein (NEGATIVE) mg/dL Urine Glucose (UA) (NEGATIVE) mg/dL Urine Ketones (NEGATIVE) mg/dL Urine Occult Blood (NEGATIVE) Urine Nitrite (NEGATIVE) Urine Bilirubin (NEGATIVE) Urine Urobilinogen (<2.0) EU/dL Ur Leukocyte Esterase (NEGATIVE) 12/01/19 Range/Units 06:45 WBC (4.0-11.0) K/uL RBC (4.50-5.90) M/uL Hgb (13.0-17.0) g/dL Hct (38.0-50.0) % MCV (80.0-98.0) fL MCH (27.0-32.0) pg MCHC (31.0-37.0) g/dL RDW Std Deviation (28.0-62.0) fl RDW Coeff of Satnam (11.0-15.0) % Plt Count (150-400) K/uL MPV (7.40-12.00) fL Neut % (Auto) (48.0-80.0) % Lymph % (Auto) (16.0-40.0) % [place] % (Auto) (0.0-15.0) % Eos % (Auto) (0.0-7.0) % Baso % (Auto) (0.0-1.5) % Neut # (Auto) (1.4-5.7) K/uL Lymph # (Auto) (0.6-2.4) K/uL [place] # (Auto) (0.0-0.8) K/uL Eos # (Auto) (0.0-0.7) K/uL Baso # (Auto) (0.0-0.1) K/uL Nucleated RBC % /100WBC Nucleated RBCs # K/uL ESR (0-14) mm/hr INR D-Dimer, Quantitative (0.0-0.50) mg/L FEU Lactate (0.20-2.00) mmol/L Sodium (136-148) mmol/L Potassium (3.5-5.1) mmol/L Chloride (98-107) mmol/L Carbon Dioxide (21.0-32.0) mmol/L BUN (7.0-18.0) mg/dL Creatinine (0.8-1.3) mg/dL Est Cr Clr Drug Dosing mL/min Estimated GFR (MDRD) ml/min Glucose (74-106) mg/dL Hemoglobin A1c (4.5-6.2) % Calcium (8.5-10.1) mg/dL Phosphorus 3.9 (2.6-4.7) mg/dL Magnesium 2.1 (1.8-2.4) mg/dL Total Bilirubin (0.2-1.0) mg/dL AST (15-37) IU/L ALT (14-63) IU/L Alkaline Phosphatase (46-116) U/L Troponin I (0.000-0.056) ng/mL Total Protein (6.4-8.2) g/dL Albumin (3.4-5.0) g/dL Globulin (2.6-4.0) g/dL Albumin/Globulin Ratio (0.9-1.6) TSH 3rd Generation (0.36-3.74) uIU/mL Urine Color Urine Appearance Urine pH (5.0-8.0) Ur Specific Duarte (1.001-1.035) Urine Protein (NEGATIVE) mg/dL Urine Glucose (UA) (NEGATIVE) mg/dL Urine Ketones (NEGATIVE) mg/dL Urine Occult Blood (NEGATIVE) Urine Nitrite (NEGATIVE) Urine Bilirubin (NEGATIVE) Urine Urobilinogen (<2.0) EU/dL Ur Leukocyte Esterase (NEGATIVE) [facility] Results - Last 24 hrs: Microbiology 11/30/19 12:40 Influenza Type A Antigen Screen - Final Nasopharyngeal Swab NEGATIVE INFLUENZA A VIRUS AG REFERENCE RANGE: NEGATIVE Influenza Type B Antigen Screen - Final NEGATIVE INFLUENZA B VIRUS AG REFERENCE RANGE: NEGATIVE Med Orders - Current: Current Medications Albuterol/Ipratropium (Duoneb 3.0-0.5 Mg/3 Ml) 3 ml NEB Q4HRRT PRN PRN Reason: Shortness Of Breath/wheezing Aspirin (Aspirin) 81 mg PO DAILY [facility] Last Admin: 12/01/19 08:05 Dose: 81 mg Ketorolac Tromethamine (Toradol) 30 mg IVPUSH Q6H PRN PRN Reason: Pain Stop: 12/05/19 18:53 Last Admin: 11/30/19 21:35 Dose: 30 mg Labetalol HCl (Normodyne) 10 mg IVPUSH Q6H PRN; Protocol PRN Reason: Hypertension Metoprolol Succinate (Toprol Xl) 25 mg PO DAILY [facility] Last Admin: 12/01/19 08:05 Dose: 25 mg Morphine Sulfate (Morphine) 1 mg IVPUSH Q4H PRN PRN Reason: Pain (severe 7-10) Stop: 12/01/19 16:54 Last Admin: 11/30/19 17:35 Dose: 1 mg Sodium Chloride (Saline Flush) 10 ml FLUSH ASDIRECTED PRN PRN Reason: Keep Vein Open Last Admin: 11/30/19 16:23 Dose: 10 ml Sodium Chloride (Saline Flush) 2.5 ml FLUSH ASDIRECTED PRN PRN Reason: Keep Vein Open Last Admin: 11/30/19 16:23 Dose: 2.5 ml Discontinued Medications Calcium Carbonate/Glycine (Tums) 1,000 mg PO ONETIME ONE Stop: 11/30/19 18:50 Last Admin: 11/30/19 19:02 Dose: 1,000 mg Pantoprazole Sodium 40 mg/ (Sodium Chloride) 10 mls @ 300 mls/hr IV NOW ONE Stop: 11/30/19 18:49 Last Admin: 11/30/19 19:03 Dose: 300 mls/hr Iopamidol (Isovue Multipack-370 (76%)) 75 ml IVPUSH ONETIME ONE Stop: 11/30/19 13:48 Last Admin: 11/30/19 13:47 Dose: 75 ml Ketorolac Tromethamine (Toradol) 30 mg IVPUSH ONETIME ONE Stop: 11/30/19 15:41 Last Admin: 11/30/19 16:55 Dose: Not Given Lorazepam (Ativan) 1 mg IVPUSH ONETIME ONE Stop: 11/30/19 18:51 Last Admin: 11/30/19 19:03 Dose: 1 mg Morphine Sulfate (Morphine) 4 mg IVPUSH ONETIME ONE Stop: 11/30/19 15:45 Last Admin: 11/30/19 16:22 Dose: Not Given <Ramirez Maya - Last Filed: 12/05/19 10:13> Discharge Summary - Referral to Home Health Primary Care Physician: PCP None - Patient Data Vitals - Most Recent: Last Vital Signs Temp 36.3 C 12/01/19 08:00 Pulse 84 12/01/19 08:05 Resp 18 12/01/19 08:00 BP 122/84 12/01/19 08:05 Pulse Ox 94 L 12/01/19 08:00 Med Orders - Current: Current Medications Discontinued Medications Albuterol/Ipratropium (Duoneb 3.0-0.5 Mg/3 Ml) 3 ml NEB Q4HRRT PRN PRN Reason: Shortness Of Breath/wheezing Aspirin (Aspirin) 81 mg PO DAILY [facility] Last Admin: 12/01/19 08:05 Dose: 81 mg Calcium Carbonate/Glycine (Tums) 1,000 mg PO ONETIME ONE Stop: 11/30/19 18:50 Last Admin: 11/30/19 19:02 Dose: 1,000 mg Pantoprazole Sodium 40 mg/ (Sodium Chloride) 10 mls @ 300 mls/hr IV NOW ONE Stop: 11/30/19 18:49 Last Admin: 11/30/19 19:03 Dose: 300 mls/hr Iopamidol (Isovue Multipack-370 (76%)) 75 ml IVPUSH ONETIME ONE Stop: 11/30/19 13:48 Last Admin: 11/30/19 13:47 Dose: 75 ml Ketorolac Tromethamine (Toradol) 30 mg IVPUSH ONETIME ONE Stop: 11/30/19 15:41 Last Admin: 11/30/19 16:55 Dose: Not Given Ketorolac Tromethamine (Toradol) 30 mg IVPUSH Q6H PRN PRN Reason: Pain Stop: 12/05/19 18:53 Last Admin: 11/30/19 21:35 Dose: 30 mg Labetalol HCl (Normodyne) 10 mg IVPUSH Q6H PRN; Protocol PRN Reason: Hypertension Lorazepam (Ativan) 1 mg IVPUSH ONETIME ONE Stop: 11/30/19 18:51 Last Admin: 11/30/19 19:03 Dose: 1 mg Metoprolol Succinate (Toprol Xl) 25 mg PO DAILY [facility] Last Admin: 12/01/19 08:05 Dose: 25 mg Morphine Sulfate (Morphine) 4 mg IVPUSH ONETIME ONE Stop: 11/30/19 15:45 Last Admin: 11/30/19 16:22 Dose: Not Given Morphine Sulfate (Morphine) 1 mg IVPUSH Q4H PRN PRN Reason: Pain (severe 7-10) Stop: 12/01/19 16:54 Last Admin: 11/30/19 17:35 Dose: 1 mg Sodium Chloride (Saline Flush) 10 ml FLUSH ASDIRECTED PRN PRN Reason: Keep Vein Open Last Admin: 11/30/19 16:23 Dose: 10 ml Sodium Chloride (Saline Flush) 2.5 ml FLUSH ASDIRECTED PRN PRN Reason: Keep Vein Open Last Admin: 11/30/19 16:23 Dose: 2.5 ml - Free Text/Narrative Note: I have seen and evaluated the patient with the resident. I have discussed the findings and treatment plan with the resident. I agree with the assessment and plan as outlined in the following note.
== END 2019-12-01 11:10 | disposition home or self-care (01) ==
LOC: MW.ED 10:39 → MW.MS 16:33
PROVIDERS: ADMIT Student in an Organized Health Care Education/Training Program; ATTEND Student in an Organized Health Care Education/Training Program
DX: R07.1 Chest pain on breathing (principal); R07.2 Precordial pain; I71.4 Abdominal aortic aneurysm, without rupture; I10 Essential (primary) hypertension; D72.829 Elevated white blood cell count, unspecified; Z79.899 Other long term (current) drug therapy; Z87.891 Personal history of nicotine dependence; Z91.030 Bee allergy status; Z88.0 Allergy status to penicillin
CPT/HCPCS: 36415; 71046; 71270; 80053; 81003; 83036; 83605; 83735; 84100; 84443; 84484; 85025; 85379; 85610; 85652; 86141; 87804; 93005; 96374; 96375; 99285; A9270; C9113; G0378; J1885; J2060; J2270; J7050; Q9967; 99284

== ENCOUNTER 2020-04-03 06:29 | Day surgery (SDC) | payer BC ==
[~2020-04-03 06:29] MED LIST: Lactated Ringers 1,000 ML IV SCH
[2020-04-03] MEDS ORDERED: Lidocaine 2% 5 ML SDV ONE (07:10)
[2020-04-03] MEDS ORDERED: Midazolam 1 MG/ML 2 ML SDV ONE (07:10)
[2020-04-03] MEDS ORDERED: Propofol 200 MG/20 ML SDV ONE (07:10)
[2020-04-03] MEDS ORDERED: fentaNYL 100 MCG/2 ML SDV ONE (07:10)
--- NOTE | 2020-04-03 07:17 | PCM.PREANE ---
Preanesthetic Assessment - Anesthesia/Transfusion/Family Hx Anesthesia History: Prior Anesthesia Without Reaction Family History of Anesthesia Reaction: No Transfusion History: No Prior Transfusion(s) Intubation History: Unknown - Review of Systems General: No Symptoms Pulmonary: No Symptoms Cardiovascular: No Symptoms Gastrointestinal: No Symptoms Neurological: No Symptoms Other: Reports: None - Physical Assessment Height: 6 ft 2 in Weight: 116.573 kg ASA Class: 2 Mental Status: Alert & Oriented x3 Airway Class: Mallampati = 3 Dentition: Reports: Normal Dentition Thyro-Mental Finger Breadths: 3 Mouth Opening Finger Breadths: 2 (very small mouth) ROM/Head Extension: Full Lungs: Clear to Auscultation, Normal Respiratory Effort Cardiovascular: Regular Rate, Regular Rhythm - Allergies Allergies/Adverse Reactions: Allergies Allergy/AdvReac Type Severity Reaction Status Date / Time amoxicillin [Amoxicillin] Allergy Hives Verified 04/03/20 07:11 bee venom protein (honey bee) Allergy Hives Verified 04/03/20 07:11 - Blood Blood Available: No - Anesthesia Plan Pre-Op Medication Ordered: None - Acknowledgements Anesthesia Type Planned: MAC Pt an Appropriate Candidate for the Planned Anesthesia: Yes Alternatives and Risks of Anesthesia Discussed w Pt/Guardian: Yes Pt/Guardian Understands and Agrees with Anesthesia Plan: Yes PreAnesthesia Questionnaire - Past Health History Medical/Surgical History: Denies Medical/Surgical History HEENT History: Reports: None Cardiovascular History: Reports: Aneurysm, Hypertension Other Cardiovascular History: ascending aortic aneurysm (4cm) Respiratory History: Reports: None Gastrointestinal History: Reports: GERD Genitourinary History: Reports: None Musculoskeletal History: Reports: Fracture Other Musculoskeletal History: hx fx wrist Neurological History: Reports: None Psychiatric History: Reports: None Endocrine/Metabolic History: Reports: Obesity/BMI 30+ (BMI 33) Hematologic History: Reports: None Immunologic History: Reports: None Oncologic (Cancer) History: Reports: None Dermatologic History: Reports: None - Infectious Disease History Infectious Disease History: Reports: Chicken Pox - Past Surgical History Head Surgeries/Procedures: Reports: None HEENT Surgical History: Reports: None Cardiovascular Surgical History: Reports: None Respiratory Surgical History: Reports: None GI Surgical History: Reports: None Male Surgical History: Reports: None Endocrine Surgical History: Reports: None Neurological Surgical History: Reports: None Musculoskeletal Surgical History: Reports: Arthroscopic Knee, Other (See Below) Other Musculoskeletal Surgeries/Procedures:: hx of R foot surgery for flat foot, left knee arthroscopy on 03/27/20 in [place] Oncologic Surgical History: Reports: None Dermatological Surgical History: Reports: None - SUBSTANCE USE Smoking Status *Q: Former Smoker Tobacco Use Within Last Twelve Months: No - HOME MEDS Home Medications: Home Meds Omeprazole 40 mg PO DAILY #30 capsule. 12/01/19 [Rx] amLODIPine Besylate [Amlodipine Besylate] 5 mg PO BEDTIME 03/26/20 [History] oxyCODONE HCl [Roxicodone] 1 tab PO Q6H PRN 03/27/20 [History] - CURRENT (IN HOUSE) MEDS Current Meds: Current Medications Lactated Ringer's (Ringers, Lactated) 1,000 mls @ 125 mls/hr IV ASDIRECTED [facility] Last Admin: 04/03/20 07:11 Dose: 125 mls/hr Documented by: Discontinued Medications Fentanyl (Sublimaze) Confirm Administered Dose 100 mcg .ROUTE .STK-MED ONE Stop: 04/03/20 07:11 Lidocaine (Xylocaine-Mpf 2%) Confirm Administered Dose 5 ml .ROUTE .STK-MED ONE Stop: 04/03/20 07:11 Midazolam HCl (Versed 1 Mg/Ml) Confirm Administered Dose 2 mg .ROUTE .STK-MED ONE Stop: 04/03/20 07:11 Propofol (Diprivan 20 Ml) Confirm Administered Dose 400 mg .ROUTE .STK-MED ONE Stop: 04/03/20 07:11
[2020-04-03] MEDS ORDERED: Bupivacaine 0.25%/EPINEPHrine 1:200,000 10 ML SDV ONE (07:28)
[2020-04-03] MEDS ORDERED: Octyl 2-Cyanoacrylate 1 Tube ONE (07:28)
[2020-04-03] MEDS ORDERED: Clindamycin Phosphate in D5W 50 ML ONE (07:58)
--- NOTE | 2020-04-03 08:43 | PCM.OPNOTE ---
- General Post-Op/Procedure Note Date of Surgery/Procedure: 04/03/20 Operative Procedure(s): excisional biopsy forehead mass Findings: mass right in the middle of forehead, incision 2.2 cm; Pre Op Diagnosis: forehead mass Post-Op Diagnosis: Same Anesthesia Technique: Moderate Sedation Primary Surgeon: Carlton Montemayor Pathology: sent Complications: None Condition: Good Free Text/Narrative:: Intake & Output 04/02/20 04/03/20 04/03/20 22:59 06:59 14:59 Intake Total 1500 Balance 1500
--- NOTE | 2020-04-03 08:46 | PCM.POSTAN ---
POST ANESTHESIA ASSESSMENT - MENTAL STATUS Mental Status: Alert, Oriented - VITAL SIGNS Vital Signs: Last Vital Signs Temp 36.2 C 04/03/20 08:32 Pulse 61 04/03/20 08:41 Resp 13 04/03/20 08:41 BP 109/67 04/03/20 08:41 Pulse Ox 93 L 04/03/20 08:41 - RESPIRATORY Respiratory Status: Respiratory Rate WNL, Airway Patent, O2 Saturation Stable - CARDIOVASCULAR CV Status: Pulse Rate WNL, Blood Pressure Stable - GASTROINTESTINAL GI Status: No Symptoms - PAIN Pain Score: 0 - POST OP HYDRATION Hydration Status: Adequate & Stable - OBSERVATIONS Free Text/Narrative:: No anesthesia problems
--- NOTE | 2020-04-03 09:00 | PCM48HPAN ---
Post Anesthesia Note - EVALUATION WITHIN 48HRS OF ANESTHETIC Vital Signs in Normal Range: Yes Patient Participated in Evaluation: Yes Respiratory Function Stable: Yes Airway Patent: Yes Cardiovascular Function Stable: Yes Hydration Status Stable: Yes Pain Control Satisfactory: Yes Nausea and Vomiting Control Satisfactory: Yes Mental Status Recovered: Yes Vital Signs: Last Vital Signs Temp 36.2 C 04/03/20 08:32 Pulse 61 04/03/20 08:41 Resp 13 04/03/20 08:41 BP 109/67 04/03/20 08:41 Pulse Ox 93 L 04/03/20 08:41 - COMMENTS/OBSERVATIONS Free Text/Narrative:: No anesthesia problems
--- NOTE | 2020-04-03 15:59 | OR ---
SURGEON: Carlton Montemayor MD DATE OF PROCEDURE: 04/03/2020 PREOPERATIVE DIAGNOSIS: Forehead mass. POSTOPERATIVE DIAGNOSIS: Forehead mass. PROCEDURE PERFORMED: Excisional biopsy. PRIMARY SURGEON: Cartlon Montemayor MD COMPLICATIONS: None. 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 DESCRIPTION OF PROCEDURE: The patient was taken to the operating room and placed in the supine position. Upon induction of mild general sedation, the patient's forehead was prepped and draped in a sterile fashion. The mass was located right in the middle of the forehead, right between the hairline and the eyebrow. A fish-mouth incision was made and found out that the mass was not a cyst, was probably a lipoma, and right on top of the bone. The whole thing was excised, sent for pathology, and oriented with two stitches. Long-long was 12 o'clock and short-short was 6 o'clock. Good hemostasis achieved by using electrocautery and the wound was then closed with 5-0 Prolene and followed by appropriate dressing. The patient was awakened, transferred to Recovery in hemodynamically stable condition. The patient tolerated the procedure well. There were no intraoperative complications. Dr. Montemayor was present through the whole procedure. IV antibiotic was given before surgery. HIPOLITO / ANKIT /[id number]
== END 2020-04-03 09:12 | disposition home or self-care (01) ==
LOC: MW.SDS 06:29
PROVIDERS: ATTEND Surgery
DX: D17.0 Benign lipomatous neoplasm of skin and subcutaneous tissue of head, face and neck (principal); K21.9 Gastro-esophageal reflux disease without esophagitis; I10 Essential (primary) hypertension; E66.9 Obesity, unspecified; Z68.33 Body mass index [BMI] 33.0-33.9, adult; Z79.899 Other long term (current) drug therapy; Z87.891 Personal history of nicotine dependence; Z88.0 Allergy status to penicillin; Z91.030 Bee allergy status
CPT/HCPCS: 11443; 88304; J2001; J2250; J2704; J3010; J3490; J7120; S0077; 00300; A9270-GY